=== PATIENT | male | born 1995 | race Caucasian/White ===

== ENCOUNTER 2022-09-24 15:15 | Emergency (ER) | payer SELFPAY ==
[2022-09-24 15:24] VITALS: BP 154/96; PULSE 90; RESP 19; TEMP 36.6; O2SAT 98; BMI 33.4
--- NOTE | 2022-09-24 15:49 | XRR_ITS ---
PROCEDURE INFORMATION: Exam: XR Right Hand Exam date and time: 09/24/2022 4:19 PM Age: 27 years old Clinical indication: Injury or trauma; Fall; Blunt trauma (contusions or hematomas); Wrist and hand; Right; Additional info: Fall injury TECHNIQUE: Imaging protocol: Radiologic exam of the right hand. Views: 3 or more views. COMPARISON: No relevant prior studies available. FINDINGS: Bones/joints: Comminuted fractures of the bases and proximal metaphysis of the 4th and 5th metacarpals. Mild lateral subluxation and mild volar angulation of the distal fracture fragments. No dislocation. Normal bone mineralization. No joint effusion. Joint spaces are maintained. Soft tissues: Mild soft tissue swelling around the 4th and 5th metacarpals. No radiopaque foreign body. XR/XR hand RT min 3V* [id number] IMPRESSION: 1. Comminuted fractures of the bases and proximal metaphysis of the 4th and 5th metacarpals. Mild lateral subluxation and mild volar angulation of the distal fracture fragments. 2. Mild soft tissue swelling around the 4th and 5th metacarpals.
--- NOTE | 2022-09-24 15:49 | XRR_ITS ---
PROCEDURE INFORMATION: Exam: XR Right Wrist Exam date and time: 09/24/2022 4:19 PM Age: 27 years old Clinical indication: Injury or trauma; Fall; Blunt trauma (contusions or hematomas); Wrist and hand; Right; Additional info: Fall injury TECHNIQUE: Imaging protocol: Radiologic exam of the right wrist. Views: 3 or more views. COMPARISON: No relevant prior studies available. FINDINGS: Bones/joints: No acute fracture of the right carpal bones. Mildly comminuted and displaced intra-articular fractures of the proximal metaphysis and bases of the 4th and 5th metacarpals. No dislocation. Normal bone mineralization. No joint effusion. Joint spaces are maintained. Soft tissues: Mild soft tissue swelling around the right 4th and 5th metacarpals. No radiopaque foreign body. XR/XR wrist RT min 3V* [id number] IMPRESSION: 1. Mildly comminuted and displaced intra-articular fractures of the proximal metaphysis and bases of the 4th and 5th metacarpals. Please refer to dictation for right hand radiographs dated 09/24/2022 for full description of these findings. 2. Mild soft tissue swelling around the right 4th and 5th metacarpals. 3. No acute fracture of the right carpal bones.
--- NOTE | 2022-09-24 16:17 | W.ED.EXTPRO ---
Documented by User: BRYAN Lemus 09/25/22 11:15 HPI - Extremity Problem General: Chief complaint: Extremity Injury, Upper Stated complaint: hand injury Time Seen by Provider: 09/24/22 15:36 History of Present Illness: Patient is a 27-year-old male comes to the ED with right hand and wrist injury. Injury occurred just prior to arrival. Patient says he tripped and fell forward. He landed with his right hand in a fist and hitting the ground. He felt a sharp pain and pop in back of right hand. He states that when he got up he had some swelling in the dorsal aspect of hand and then it shifted forward and flattened back out. He rates his pain currently 8 out of 10 and most of it is located over the fourth and fifth metacarpal of hand. He has some swelling and ecchymosis noted as well. Limited range of motion in fifth digit due to pain. Patient has not had any pain medications before coming to the ED. Associated symptoms: Deny chest pain, fever(s) or rash Review of Systems Const: Denies: fever(s), chills or fatigue Eyes: Denies: change in vision or eye discomfort ENMT: Denies: throat pain, odynophagia, nasal discharge or nasal congestion Card: Denies: chest pain, palpitations, edema, swelling of feet/ankles, dyspnea on exertion or orthopnea Resp: Denies: dyspnea, productive cough or non-productive cough GI: Denies: abdominal pain, nausea, vomiting, diarrhea, constipation or hematochezia : Denies: flank pain, difficulty urinating, dysuria or hematuria Musc: Reports: extremity pain (Right hand), extremity swelling (Right hand) and limited range of motion (Fifth digit of right hand); Denies: neck pain or back pain Skin/Breast: Denies: rash or new lesions Neuro: Denies: headache(s), numbness in extremities or weakness in extremities [facility] ED PFSH: Medical History (Updated 09/24/22 @ 16:50 by BRYAN Lemus) No pertinent family history No pertinent past medical history Physical Exam Const: COMMON NORMALS: no acute distress, patient oriented x3, healthy appearing and alert HENMT: COMMON NORMALS: normocephalic HEAD & SCALP: normocephalic MOUTH: Normal oral and palatal mucosa present THROAT: posterior oropharynx normal and uvula midline Neck/C-Spine: COMMON NORMALS: supple GENERAL: Yes normal visual inspection Resp: COMMON NORMALS: normal respiratory effort, No retractions, No use of accessory muscles and clear to auscultation bilaterally AUSCULTATION: clear to auscultation bilaterally Cardio: COMMON NORMALS: regular rate, regular rhythm, S1 normal heart sound present, S2 normal heart sound present, No gallops present (Cardio), No clicks present (Cardio), No murmurs present (Cardio) and Peripheral pulses 2+ throughout RATE: regular rate RHYTHM: regular rhythm HEART SOUNDS: S1 normal heart sound present and S2 normal heart sound present PERIPHERAL PULSES: Peripheral pulses 2+ throughout GI: COMMON NORMALS: Normal to inspection, nondistended, normoactive bowel sounds present, Soft to palpation, non-tender and no masses PALPATION: Yes Soft to palpation : COMMON NORMALS: Yes no CVA tenderness BLADDER/KIDNEY EXAM: Yes no CVA tenderness Back/Pelvis: COMMON NORMALS: no CVA tenderness Extremity: NARRATIVE EXTREMITY EXAM: Right hand?ecchymosis and swelling around fourth and fifth metacarpals. Tenderness as well over fifth metacarpal. Limited range of motion of fifth digit due to pain. Neurovascular intact distally. Neuro: COMMON NORMALS: patient oriented x3 SENSORIUM/ORIENTATION: Yes alert GAIT: Yes Normal gait present Skin: GENERAL SKIN EXAM: dry skin Course Vital Signs: Vital signs: Vital Signs Temperature 97.9 F 09/24/22 15:24 Pulse Rate 65 09/24/22 17:22 Respiratory Rate 16 09/24/22 17:22 Blood Pressure 121/75 09/24/22 17:22 Pulse Oximetry 96 09/24/22 17:22 Oxygen Delivery Me thod 09/24/22 15:24 MDM - Extremity (Nontraumatic) Medical Decision Making Patient is a 27-year-old male comes to the ED with right hand and wrist injury. Injury occurred just prior to arrival. Patient says he tripped and fell forward. He landed with his right hand in a fist and hitting the ground. He felt a sharp pain and pop in back of right hand. He states that when he got up he had some swelling in the dorsal aspect of hand and then it shifted forward and flattened back out. He rates his pain currently 8 out of 10 and most of it is located over the fourth and fifth metacarpal of hand. He has some swelling and ecchymosis noted as well. Limited range of motion in fifth digit due to pain. Patient has not had any pain medications before coming to the ED. vital stable. Right hand?ecchymosis and swelling around fourth and fifth metacarpals. Tenderness as well over fifth metacarpal. Limited range of motion of fifth digit due to pain. Neurovascular intact distally. X-ray of right hand and right wrist showed mildly comminuted and displaced intra-articular fractures of the proximal metaphysis and bases of the fourth and fifth metacarpal. I placed an order with case management for patient be referred to Ortho for follow-up on metacarpal fractures. He was put in a ulnar gutter splint and was stable for discharge home. Return to ED precautions given. Patient was instructed to keep splint on and dry and limit any activity with right hand until cleared by Ortho. He was told that case management should be contacting him in the next several days to set up an appointment with orthopedic for follow-up on metacarpal fractures. Patient understood and agreed with plan. Lab Data Radiology Impressions Hand X-Ray 09/24/22 15:49 IMPRESSION: 1. Comminuted fractures of the bases and proximal metaphysis of the 4th and 5th metacarpals. Mild lateral subluxation and mild volar angulation of the distal fracture fragments. 2. Mild soft tissue swelling around the 4th and 5th metacarpals. Wrist X-Ray 09/24/22 15:49 IMPRESSION: 1. Mildly comminuted and displaced intra-articular fractures of the proximal metaphysis and bases of the 4th and 5th metacarpals. Please refer to dictation for right hand radiographs dated 09/24/2022 for full description of these findings. 2. Mild soft tissue swelling around the right 4th and 5th metacarpals. 3. No acute fracture of the right carpal bones. Discharge Plan Discharge Patient Disposition: Home Clinical Impression: Multiple fractures of metacarpal bones Qualifiers: Encounter type: initial encounter Fracture type: closed Qualified Code(s): S62.309A - Unspecified fracture of unspecified metacarpal bone, initial encounter for closed fracture Condition: Stable Prescriptions: New ibuprofen 800 mg tablet 800 mg PO Q8H PRN (Reason: pain) Qty: 30 0RF Discharge Orders: Discharge ED (Routine); Ordered 09/24/22 Ordered By: Ishaan Graves Referrals: Ramona Aragon NP [Primary Care Provider] - Discharge Diet: Regular Discharge Activity: Limit activity as instructed Patient Instructions: Hand Fracture (DC), Boxer Fracture (ED) Activity Restrictions/Additional Instructions: Follow-up with medical provider as directed. Case management should be contacted in the next several days to set up an appointment with Ortho for follow-up on hand fracture. Keep splint on and dry and limit any activity with right hand until cleared by Ortho. take medications as prescribed. Return to the ER or your medical provider if condition worsens. Please read and understand discharge instructions. Thank you for choosing [facility] for your healthcare needs today. Please realize this is an emergency room and that we are providing you with a medical screening exam and this may not be complete and all inclusive of all the testing and or work up that you may need to determine your ailment or severity of your illness. It is very important that you follow up as instructed or that you return to the Emergency Department should you have concerns or if your condition changes or worsens in any way. Coding Level of Care Code ED Water Manager for [facility] Documented by User: Maverick Yarbrough DO 09/25/22 13:15 HPI - Extremity Problem General: Chief complaint: Extremity Injury, Upper Stated complaint: hand injury Time Seen by Provider: 09/24/22 15:36 [facility] ED PFS: Medical History (Updated 09/24/22 @ 16:50 by BRYAN Lemus) No pertinent family history No pertinent past medical history Course Vital Signs: Vital signs: Vital Signs Temperature 97.9 F 09/24/22 15:24 Pulse Rate 65 09/24/22 17:22 Respiratory Rate 16 09/24/22 17:22 Blood Pressure 121/75 09/24/22 17:22 Pulse Oximetry 96 09/24/22 17:22 Oxygen Delivery Me thod 09/24/22 15:24 MDM - Extremity (Nontraumatic) Medical Decision Making Patient is a 27-year-old male comes to the ED with right hand and wrist injury. Injury occurred just prior to arrival. Patient says he tripped and fell forward. He landed with his right hand in a fist and hitting the ground. He felt a sharp pain and pop in back of right hand. He states that when he got up he had some swelling in the dorsal aspect of hand and then it shifted forward and flattened back out. He rates his pain currently 8 out of 10 and most of it is located over the fourth and fifth metacarpal of hand. He has some swelling and ecchymosis noted as well. Limited range of motion in fifth digit due to pain. Patient has not had any pain medications before coming to the ED. vital stable. Right hand?ecchymosis and swelling around fourth and fifth metacarpals. Tenderness as well over fifth metacarpal. Limited range of motion of fifth digit due to pain. Neurovascular intact distally. X-ray of right hand and right wrist showed mildly comminuted and displaced intra-articular fractures of the proximal metaphysis and bases of the fourth and fifth metacarpal. I placed an order with case management for patient be referred to Ortho for follow-up on metacarpal fractures. He was put in a ulnar gutter splint and was stable for discharge home. Return to ED precautions given. Patient was instructed to keep splint on and dry and limit any activity with right hand until cleared by Ortho. He was told that case management should be contacting him in the next several days to set up an appointment with orthopedic for follow-up on metacarpal fractures. Patient understood and agreed with plan. Chart reviewed and patient discussed with midlevel. Agree with assessment and plan. Lab Data Radiology Impressions Hand X-Ray 09/24/22 15:49 IMPRESSION: 1. Comminuted fractures of the bases and proximal metaphysis of the 4th and 5th metacarpals. Mild lateral subluxation and mild volar angulation of the distal fracture fragments. 2. Mild soft tissue swelling around the 4th and 5th metacarpals. Wrist X-Ray 09/24/22 15:49 IMPRESSION: 1. Mildly comminuted and displaced intra-articular fractures of the proximal metaphysis and bases of the 4th and 5th metacarpals. Please refer to dictation for right hand radiographs dated 09/24/2022 for full description of these findings. 2. Mild soft tissue swelling around the right 4th and 5th metacarpals. 3. No acute fracture of the right carpal bones. Discharge Plan Discharge Patient Disposition: Home Clinical Impression: Multiple fractures of metacarpal bones Qualifiers: Encounter type: initial encounter Fracture type: closed Qualified Code(s): S62.309A - Unspecified fracture of unspecified metacarpal bone, initial encounter for closed fracture Condition: Stable Prescriptions: New ibuprofen 800 mg tablet 800 mg PO Q8H PRN (Reason: pain) Qty: 30 0RF Discharge Orders: Discharge ED (Routine); Ordered 09/24/22 Ordered By: Ishaan Graves Referrals: Ramona Aragon NP [Primary Care Provider] - Discharge Diet: Regular Discharge Activity: Limit activity as instructed Patient Instructions: Hand Fracture (DC), Boxer Fracture (ED) Activity Restrictions/Additional Instructions: Follow-up with medical provider as directed. Case management should be contacted in the next several days to set up an appointment with Ortho for follow-up on hand fracture. Keep splint on and dry and limit any activity with right hand until cleared by Ortho. take medications as prescribed. Return to the ER or your medical provider if condition worsens. Please read and understand discharge instructions. Thank you for choosing [facility] for your healthcare needs today. Please realize this is an emergency room and that we are providing you with a medical screening exam and this may not be complete and all inclusive of all the testing and or work up that you may need to determine your ailment or severity of your illness. It is very important that you follow up as instructed or that you return to the Emergency Department should you have concerns or if your condition changes or worsens in any way. Coding Level of Care Code ED Water Manager for [facility] Nugent
[2022-09-24] MEDS: ibuprofen 800 mg tablet PO (17:06)
[2022-09-24 17:13] VITALS: PULSE 88; RESP 17; O2SAT 98
[2022-09-24 17:22] VITALS: BP 121/75; PULSE 65; RESP 16; O2SAT 96
--- NOTE | 2022-09-25 11:38 | DCPLANNER ---
Addendum entered by Renee Salgado 09/28/22 07:59: manager of financial received the following message from the ortho clinic regarding follow up appointment: attempt made to contact patient - number in chart gives a busy tone (tried from multiple phones here in clinic) - also tried to his emergeny contacts numbers with no success - will mail letter to call out clinic to schedule w/ dr sykes Original Note: manager of financial had message to schedule a follow up appointment for patient with ortho. manager of financial sent patients information to the front office staff at ortho. Patients information will be printed and reviewed. Clinic will call patient with appointment information.
== END 2022-09-24 17:24 | disposition home or self-care (01) ==
PROVIDERS: Emergency Provider Physician Assistant; PCP Nurse Practitioner Family
DX: S62.314A Displaced fracture of base of fourth metacarpal bone, right hand, initial encounter for closed fracture (principal); S62.316A Displaced fracture of base of fifth metacarpal bone, right hand, initial encounter for closed fracture; W01.0XXA Fall on same level from slipping, tripping and stumbling without subsequent striking against object, initial encounter
CPT/HCPCS: 29125; 73110; 73130; 99283

== ENCOUNTER → 2022-10-23 10:52 | Outpatient (BNVA) | payer SELFPAY | PROVIDERS: PCP Nurse Practitioner Family; Referring Provider Student in an Organized Health Care Education/Training Program; Visit Provider Student in an Organized Health Care Education/Training Program | DX: S62.344A Nondisplaced fracture of base of fourth metacarpal bone, right hand, initial encounter for closed fracture (principal); S62.346A Nondisplaced fracture of base of fifth metacarpal bone, right hand, initial encounter for closed fracture; W22.8XXA Striking against or struck by other objects, initial encounter | CPT/HCPCS: 73130 ==

== ENCOUNTER 2022-12-22 08:28 | Outpatient (CLI) | payer SELFPAY | END 2022-12-22 08:29 | disposition home or self-care (01) | LOC: SOT 08:28 | PROVIDERS: Visit Provider Student in an Organized Health Care Education/Training Program | DX: S62.308A Unspecified fracture of other metacarpal bone, initial encounter for closed fracture (principal); X58.XXXA Exposure to other specified factors, initial encounter | CPT/HCPCS: L3919 ==